=== PATIENT | male | born 1985 | race African-American/Black ===

== ENCOUNTER 2017-06-07 09:36 | Emergency (ER) | payer OTHER ==
[~2017-06-07] VITALS: Ht 170.2 cm; Wt 95.5 kg
[2017-06-07] MEDS ORDERED: NORCO, ANEXSIA 5/325MG TABLET (HYDROcodone/ACETAMINOPHEN) PO ONE (10:00)
[2017-06-07 10:38] VITALS: BP 145/88
[2017-06-07] MEDS ORDERED: NORCOTAB PO (10:40)
--- NOTE | 2017-06-07 11:22 | REP ---
REASON: Trauma. Attention first digit. PRIORS: None. There is a fracture involving the base of the distal phalanx of the first digit with anterior dislocation of the interphalangeal joint of the first digit. IMPRESSION: Fracture dislocation as described above. Signed by Diogo Hammer DO 06/07/2017 12:07 P
== END 2017-06-07 10:48 | disposition home or self-care (01) ==
LOC: M ED 09:36
DX: S92.424A Nondisplaced fracture of distal phalanx of right great toe, initial encounter for closed fracture (principal); S93.111A Dislocation of interphalangeal joint of right great toe, initial encounter; X58.XXXA Exposure to other specified factors, initial encounter; Y92.39 Other specified sports and athletic area as the place of occurrence of the external cause; Y93.9 Activity, unspecified; Y99.9 Unspecified external cause status

== ENCOUNTER 2018-03-11 09:45 | Emergency (ER) | payer OTHER ==
[2018-03-11] MEDS: NAPROXEN 250 MG TAB PO (10:28)
== END 2018-03-11 11:13 | disposition home or self-care (01) ==
LOC: M ED 09:45
DX: S69.91XA Unspecified injury of right wrist, hand and finger(s), initial encounter (principal); W22.8XXA Striking against or struck by other objects, initial encounter; Y92.59 Other trade areas as the place of occurrence of the external cause; Y99.0 Civilian activity done for income or pay; I10 Essential (primary) hypertension
CPT/HCPCS: 73140

== ENCOUNTER 2018-05-25 11:03 | Emergency (ER) | payer OTHER | END 2018-05-25 12:14 | disposition home or self-care (01) | LOC: M ED 11:03 | DX: F10.229 Alcohol dependence with intoxication, unspecified (principal); I10 Essential (primary) hypertension | CPT/HCPCS: 99284 ==

== ENCOUNTER 2018-05-26 06:29 | Inpatient (IN) | payer OTHER ==
[2018-05-26 07:34] LABS: MEAN CORPUSCULAR HEMOGLOBIN 29.6 pg (27.0-33.0); MEAN CORPUSCULAR HGB CONC 34.7 g/dl (32.0-36.5); MEAN CORPUSCULAR VOLUME 85.2 fl (80.0-96.0); PLATELET COUNT, AUTOMATED 217 10^3/uL (150-450); RED BLOOD COUNT 5.75 10^6/uL (4.30-6.10); RED CELL DISTRIBUTION WIDTH 13.3 % (11.5-14.5); WHITE BLOOD COUNT 7.5 10^3/uL (4.0-10.0)
[2018-05-26 08:08] LABS: ALBUMIN 3.9 GM/DL (3.2-5.2); ALBUMIN/GLOBULIN RATIO 1.18 (1.00-1.93); ALKALINE PHOSPHATASE 71 U/L (45-117); ALT/SGPT 94 U/L (12-78); ANION GAP 15 MEQ/L (8-16); AST/SGOT 58 U/L (7-37); BILIRUBIN,DIRECT 0.2 MG/DL (0.0-0.2); BILIRUBIN,TOTAL 0.9 MG/DL (0.2-1.0); BLOOD UREA NITROGEN 11 MG/DL (7-18); CALCIUM LEVEL 8.9 MG/DL (8.5-10.1); CARBON DIOXIDE LEVEL 26 MEQ/L (21-32); CHLORIDE LEVEL 105 MEQ/L (98-107); CREATININE FOR GFR 1.08 MG/DL (0.70-1.30); ETHYL ALCOHOL (ETHANOL) 0.329 % (0.000-0.010); GLOMERULAR FILTRATION RATE > 60.0 (>60); GLUCOSE, FASTING 100 MG/DL (70-100); SALICYLATE LEVEL < 1.7 MG/DL (5.0-30.0); SODIUM LEVEL 146 MEQ/L (136-145); TOTAL PROTEIN 7.2 GM/DL (6.4-8.2)
[2018-05-26 08:11] LABS: ACETAMINOPHEN LEVEL < 2.0 UG/ML (10.0-30.0)
[2018-05-26] MEDS ORDERED: amLODIPine 5 MG TAB PO (09:00)
[2018-05-26 09:29] LABS: AMPHETAMINES LEVEL URINE NEGATIVE (NEGATIVE); BARBITURATES URINE NEGATIVE (NEGATIVE); BENZODIAZEPINES URINE NEGATIVE (NEGATIVE); CANNABINOIDS URINE NEGATIVE (NEGATIVE); COCAINE METABOLITE URINE NEGATIVE (NEGATIVE); METHADONE URINE NEGATIVE (NEGATIVE); OPIATES URINE NEGATIVE (NEGATIVE); PHENCYCLIDINE URINE NEGATIVE (NEGATIVE)
[2018-05-26] MEDS: OXAZEPAM 15 MG CAP PO ×3 (09:57→22:00)
[2018-05-26] MEDS: ONDANSETRON 4 MG ORAL DISINTEGRATING TAB (Q0162 PER 1MG) PO (09:57)
[2018-05-26] MEDS: METOPROLOL TART 50 MG TAB PO (16:31)
[2018-05-26] MEDS: THIAMINE 100 MG TAB PO (19:29)
[2018-05-26] MEDS ORDERED: ACETAMINOPHEN TAB 650MG DOSE (2X325MG) PO (23:15)
[2018-05-26] MEDS ORDERED: OXAZEPAM 15 MG CAP PO (23:15)
[2018-05-26] MEDS ORDERED: traZODone 50 MG TAB PO (23:15)
[2018-05-26] MEDS ORDERED: MAALOX 30 ML SUSP *UDC PO (23:15)
[2018-05-26] MEDS ORDERED: MOM 30ML SUSPENSION UDC PO (23:15)
[2018-05-27] MEDS: OXAZEPAM 15 MG CAP PO ×4 (00:05→20:04)
[2018-05-27] MEDS: THIAMINE 100 MG TAB PO ×2 (09:47→20:03)
[2018-05-27] MEDS: MULTIVITAMINS/MINERALS THERAP 1 TAB PO (09:47)
[2018-05-27] MEDS: FOLIC ACID 1 MG TAB PO (09:47)
[2018-05-27] MEDS: SERTRALINE HCL 50 MG TAB PO (14:15)
[2018-05-27] MEDS: amLODIPine 10 MG TAB PO (20:04)
[2018-05-27] MEDS: LOTRISONE CREAM 15 GM (BETAMETH/CLOTRIMAZOLE) TOP (22:17)
[2018-05-28] MEDS: OXAZEPAM 15 MG CAP PO ×4 (00:04→21:16)
[2018-05-28 07:43] LABS: ALBUMIN 3.5 GM/DL (3.2-5.2); ALBUMIN/GLOBULIN RATIO 1.03 (1.00-1.93); ALKALINE PHOSPHATASE 77 U/L (45-117); ALT/SGPT 125 U/L (12-78); AST/SGOT 116 U/L (7-37); BILIRUBIN,DIRECT 0.4 MG/DL (0.0-0.2); BILIRUBIN,TOTAL 1.7 MG/DL (0.2-1.0); TOTAL PROTEIN 6.9 GM/DL (6.4-8.2)
[2018-05-28] MEDS: THIAMINE 100 MG TAB PO ×2 (09:34→21:16)
[2018-05-28] MEDS: SERTRALINE HCL 50 MG TAB PO (09:34)
[2018-05-28] MEDS: FOLIC ACID 1 MG TAB PO (09:34)
[2018-05-28] MEDS: MULTIVITAMINS/MINERALS THERAP 1 TAB PO (09:34)
[2018-05-28] MEDS: LOTRISONE CREAM 15 GM (BETAMETH/CLOTRIMAZOLE) TOP ×2 (09:35→21:00)
[2018-05-28] MEDS: amLODIPine 10 MG TAB PO (09:35)
[2018-05-29] MEDS: OXAZEPAM 15 MG CAP PO ×3 (06:06→21:29)
[2018-05-29] MEDS: LOTRISONE CREAM 15 GM (BETAMETH/CLOTRIMAZOLE) TOP ×2 (09:28→21:29)
[2018-05-29] MEDS: THIAMINE 100 MG TAB PO (09:28)
[2018-05-29] MEDS: SERTRALINE HCL 50 MG TAB PO (09:28)
[2018-05-29] MEDS: amLODIPine 10 MG TAB PO (09:28)
[2018-05-29] MEDS: FOLIC ACID 1 MG TAB PO (09:28)
[2018-05-29] MEDS: MULTIVITAMINS/MINERALS THERAP 1 TAB PO (09:28)
[2018-05-30] MEDS: OXAZEPAM 15 MG CAP PO ×3 (06:06→22:56)
[2018-05-30 07:22] LABS: ALBUMIN 3.7 GM/DL (3.2-5.2); ALBUMIN/GLOBULIN RATIO 1.12 (1.00-1.93); ALKALINE PHOSPHATASE 67 U/L (45-117); ALT/SGPT 174 U/L (12-78); AST/SGOT 98 U/L (7-37); BILIRUBIN,DIRECT 0.3 MG/DL (0.0-0.2); BILIRUBIN,TOTAL 1.5 MG/DL (0.2-1.0)
[2018-05-30] MEDS: FOLIC ACID 1 MG TAB PO (08:45)
[2018-05-30] MEDS: MULTIVITAMINS/MINERALS THERAP 1 TAB PO (08:45)
[2018-05-30] MEDS: amLODIPine 10 MG TAB PO (08:45)
[2018-05-30] MEDS: SERTRALINE HCL 50 MG TAB PO (08:45)
[2018-05-30] MEDS: LOTRISONE CREAM 15 GM (BETAMETH/CLOTRIMAZOLE) TOP ×2 (08:46→22:58)
[2018-05-31] MEDS: OXAZEPAM 15 MG CAP PO ×2 (06:16→13:10)
[2018-05-31] MEDS: FOLIC ACID 1 MG TAB PO (09:07)
[2018-05-31] MEDS: MULTIVITAMINS/MINERALS THERAP 1 TAB PO (09:07)
[2018-05-31] MEDS: LOTRISONE CREAM 15 GM (BETAMETH/CLOTRIMAZOLE) TOP ×2 (09:07→21:06)
[2018-05-31] MEDS: amLODIPine 10 MG TAB PO (09:08)
[2018-05-31] MEDS: SERTRALINE HCL 50 MG TAB PO (09:08)
[2018-05-31] MEDS ORDERED: OXAZEPAM 15 MG CAP PO (10:30)
[2018-06-01] MEDS: MULTIVITAMINS/MINERALS THERAP 1 TAB PO (08:22)
[2018-06-01] MEDS: SERTRALINE HCL 50 MG TAB PO (08:22)
[2018-06-01] MEDS: LOTRISONE CREAM 15 GM (BETAMETH/CLOTRIMAZOLE) TOP ×2 (08:23→21:11)
[2018-06-01] MEDS: amLODIPine 10 MG TAB PO (08:23)
[2018-06-01] MEDS: FOLIC ACID 1 MG TAB PO (08:23)
[2018-06-02] MEDS: SERTRALINE HCL 50 MG TAB PO (08:11)
[2018-06-02] MEDS: FOLIC ACID 1 MG TAB PO (08:11)
[2018-06-02] MEDS: LOTRISONE CREAM 15 GM (BETAMETH/CLOTRIMAZOLE) TOP (08:11)
[2018-06-02] MEDS: amLODIPine 10 MG TAB PO (08:11)
[2018-06-02] MEDS: MULTIVITAMINS/MINERALS THERAP 1 TAB PO (08:11)
== END 2018-06-02 13:00 | disposition home or self-care (01) | DRG 885 ==
LOC: M ED 06:29 → M ED INP 19:13 → M PSY 20:35
DX: F33.9 Major depressive disorder, recurrent, unspecified (principal); R45.851 Suicidal ideations; F43.10 Post-traumatic stress disorder, unspecified; F10.129 Alcohol abuse with intoxication, unspecified; I10 Essential (primary) hypertension; B35.3 Tinea pedis

== ENCOUNTER 2018-06-19 19:40 | Inpatient (IN) | payer OTHER ==
[2018-06-19 20:41] LABS: HEMATOCRIT 54.5 % (42.0-52.0); HEMOGLOBIN 18.3 g/dl (13.5-17.5); MEAN CORPUSCULAR HEMOGLOBIN 29.3 pg (27.0-33.0); MEAN CORPUSCULAR HGB CONC 33.6 g/dl (32.0-36.5); MEAN CORPUSCULAR VOLUME 87.2 fl (80.0-96.0); PLATELET COUNT, AUTOMATED 307 10^3/uL (150-450); RED BLOOD COUNT 6.25 10^6/uL (4.30-6.10); RED CELL DISTRIBUTION WIDTH 12.9 % (11.5-14.5)
[2018-06-19 20:54] LABS: AMPHETAMINES LEVEL URINE NEGATIVE (NEGATIVE); BARBITURATES URINE NEGATIVE (NEGATIVE); BENZODIAZEPINES URINE NEGATIVE (NEGATIVE); CANNABINOIDS URINE NEGATIVE (NEGATIVE); COCAINE METABOLITE URINE NEGATIVE (NEGATIVE); METHADONE URINE NEGATIVE (NEGATIVE); OPIATES URINE NEGATIVE (NEGATIVE); PHENCYCLIDINE URINE NEGATIVE (NEGATIVE)
[2018-06-19 21:06] LABS: ALBUMIN 4.6 GM/DL (3.2-5.2); ALBUMIN/GLOBULIN RATIO 1.15 (1.00-1.93); ALKALINE PHOSPHATASE 98 U/L (45-117); ALT/SGPT 79 U/L (12-78); ANION GAP 10 MEQ/L (8-16); AST/SGOT 36 U/L (7-37); BILIRUBIN,DIRECT 0.2 MG/DL (0.0-0.2); BILIRUBIN,TOTAL 0.6 MG/DL (0.2-1.0); BLOOD UREA NITROGEN 16 MG/DL (7-18); CALCIUM LEVEL 9.1 MG/DL (8.5-10.1); CARBON DIOXIDE LEVEL 28 MEQ/L (21-32); CHLORIDE LEVEL 104 MEQ/L (98-107); CREATININE FOR GFR 1.44 MG/DL (0.70-1.30); GLOMERULAR FILTRATION RATE > 60.0 (>60); GLUCOSE, FASTING 89 MG/DL (70-100); POTASSIUM SERUM 4.2 MEQ/L (3.5-5.1); SALICYLATE LEVEL < 1.7 MG/DL (5.0-30.0); SODIUM LEVEL 142 MEQ/L (136-145); TOTAL PROTEIN 8.6 GM/DL (6.4-8.2)
[2018-06-19 21:14] LABS: ACETAMINOPHEN LEVEL < 2.0 UG/ML (10.0-30.0)
[2018-06-20] MEDS ORDERED: MAALOX 30 ML SUSP *UDC PO (11:00)
[2018-06-20] MEDS ORDERED: ACETAMINOPHEN TAB 650MG DOSE (2X325MG) PO (11:00)
[2018-06-20] MEDS ORDERED: MOM 30ML SUSPENSION UDC PO (11:00)
[2018-06-20] MEDS: OXAZEPAM 15 MG CAP PO (11:44)
[2018-06-20] MEDS: SERTRALINE 100 MG TAB PO (15:03)
[2018-06-20] MEDS: amLODIPine 10 MG TAB PO (16:44)
[2018-06-20] MEDS: LORazepam 2 MG TAB PO (18:10)
[2018-06-21] MEDS: LORazepam 2 MG TAB PO ×2 (08:13→17:44)
[2018-06-21] MEDS: SERTRALINE 100 MG TAB PO (08:14)
[2018-06-21] MEDS: amLODIPine 10 MG TAB PO (08:14)
[2018-06-21] MEDS: NALTREXONE 50 MG TAB PO (15:39)
[2018-06-21] MEDS ORDERED: LORazepam 2 MG TAB PO (23:00)
[2018-06-21] MEDS: METOPROLOL TART 25 MG TABLET PO (23:00)
[2018-06-22 06:47] LABS: BASO # 0.1 10^3/uL (0.0-0.2); BASO % 0.6 % (0.0-1.0); EOS # 0.1 10^3/uL (0.0-0.50); EOS % 1.1 % (0.0-3.0); HEMATOCRIT 50.1 % (42.0-52.0); HEMOGLOBIN 17.3 g/dl (13.5-17.5); IMMATURE GRANULOCYTE % 0.2 % (0-3.0); LYMPH # 2.4 10^3/uL (1.5-4.5); LYMPH % 26.6 % (24.0-44.0); MEAN CORPUSCULAR HEMOGLOBIN 29.2 pg (27.0-33.0); MEAN CORPUSCULAR HGB CONC 34.5 g/dl (32.0-36.5); MEAN CORPUSCULAR VOLUME 84.6 fl (80.0-96.0); MONO # 0.7 10^3/uL (0.0-0.8); MONO % 7.5 % (0.0-5.0); NEUTROPHILS # 5.8 10^3/uL (1.8-7.7); PLATELET COUNT, AUTOMATED 277 10^3/uL (150-450); RED BLOOD COUNT 5.92 10^6/uL (4.30-6.10); RED CELL DISTRIBUTION WIDTH 12.5 % (11.5-14.5)
[2018-06-22 07:20] LABS: ALBUMIN 4.2 GM/DL (3.2-5.2); ALBUMIN/GLOBULIN RATIO 1.14 (1.00-1.93); ALKALINE PHOSPHATASE 91 U/L (45-117); ALT/SGPT 55 U/L (12-78); ANION GAP 8 MEQ/L (8-16); AST/SGOT 25 U/L (7-37); BILIRUBIN,TOTAL 1.5 MG/DL (0.2-1.0); BLOOD UREA NITROGEN 20 MG/DL (7-18); CALCIUM LEVEL 9.7 MG/DL (8.5-10.1); CARBON DIOXIDE LEVEL 27 MEQ/L (21-32); CHLORIDE LEVEL 106 MEQ/L (98-107); CREATININE FOR GFR 1.16 MG/DL (0.70-1.30); GLOMERULAR FILTRATION RATE > 60.0 (>60); GLUCOSE, FASTING 114 MG/DL (70-100); POTASSIUM SERUM 4.2 MEQ/L (3.5-5.1); SODIUM LEVEL 141 MEQ/L (136-145); TOTAL PROTEIN 7.9 GM/DL (6.4-8.2)
[2018-06-22] MEDS ORDERED: THIAMINE 100 MG TAB PO (09:00)
[2018-06-22] MEDS: METOPROLOL TART 25 MG TABLET PO ×2 (09:00→20:50)
[2018-06-22] MEDS: amLODIPine 10 MG TAB PO (09:00)
[2018-06-22] MEDS: SERTRALINE 100 MG TAB PO (09:00)
[2018-06-22] MEDS: MULTIVITAMINS/MINERALS THERAP 1 TAB PO (09:00)
[2018-06-22] MEDS: NALTREXONE 50 MG TAB PO (09:00)
[2018-06-22] MEDS: THIAMINE 100 MG TAB PO ×2 (09:00→20:50)
[2018-06-22] MEDS: FOLIC ACID 1 MG TAB PO (09:00)
[2018-06-22] MEDS: traZODone 50 MG TAB PO (20:50)
[2018-06-23] MEDS: amLODIPine 10 MG TAB PO (09:16)
[2018-06-23] MEDS: NALTREXONE 50 MG TAB PO (09:16)
[2018-06-23] MEDS: METOPROLOL TART 25 MG TABLET PO (09:16)
[2018-06-23] MEDS: MULTIVITAMINS/MINERALS THERAP 1 TAB PO (09:16)
[2018-06-23] MEDS: SERTRALINE 100 MG TAB PO (09:16)
[2018-06-23] MEDS: FOLIC ACID 1 MG TAB PO (09:16)
[2018-06-23] MEDS: THIAMINE 100 MG TAB PO (09:16)
== END 2018-06-23 11:30 | disposition home or self-care (01) | DRG 885 ==
LOC: M ED INP 06-20 10:46 → M ED 19:40 → M PSY 06-20 14:16
DX: F33.9 Major depressive disorder, recurrent, unspecified (principal); R45.851 Suicidal ideations; F10.20 Alcohol dependence, uncomplicated; F43.10 Post-traumatic stress disorder, unspecified; Z79.899 Other long term (current) drug therapy

== ENCOUNTER 2018-08-12 14:05 | Emergency (ER) | payer OTHER | END 2018-08-12 18:33 | disposition home or self-care (01) | LOC: M ED 14:05 | DX: F33.9 Major depressive disorder, recurrent, unspecified (principal); I10 Essential (primary) hypertension; F43.10 Post-traumatic stress disorder, unspecified; F10.10 Alcohol abuse, uncomplicated; Z79.899 Other long term (current) drug therapy | CPT/HCPCS: 99283 ==

== ENCOUNTER 2018-08-14 13:42 | Emergency (ER) | payer OTHER ==
[2018-08-14 15:20] LABS: ETHYL ALCOHOL (ETHANOL) 0.262 % (0.000-0.010)
== END 2018-08-14 16:07 | disposition home or self-care (01) ==
LOC: M ED 13:42
DX: F19.10 Other psychoactive substance abuse, uncomplicated (principal); F10.10 Alcohol abuse, uncomplicated
CPT/HCPCS: G0480

== ENCOUNTER 2018-08-20 07:29 | Inpatient (IN) | payer OTHER ==
[2018-08-20] MEDS: amLODIPine 10 MG TAB PO (08:07)
[2018-08-20] MEDS: OXAZEPAM 15 MG CAP PO ×3 (08:08→20:06)
[2018-08-20 08:16] LABS: HEMATOCRIT 51.6 % (42.0-52.0); HEMOGLOBIN 17.3 g/dl (13.5-17.5); MEAN CORPUSCULAR HEMOGLOBIN 29.5 pg (27.0-33.0); MEAN CORPUSCULAR HGB CONC 33.5 g/dl (32.0-36.5); MEAN CORPUSCULAR VOLUME 87.9 fl (80.0-96.0); PLATELET COUNT, AUTOMATED 239 10^3/uL (150-450); RED BLOOD COUNT 5.87 10^6/uL (4.30-6.10); RED CELL DISTRIBUTION WIDTH 14.4 % (11.5-14.5); WHITE BLOOD COUNT 6.8 10^3/uL (4.0-10.0)
[2018-08-20 08:26] LABS: AMORPHOUS SEDIMENT SMALL (NEGATIVE); APPEARANCE, URINE HAZY (CLEAR); BACTERIA, URINE AUTO NEGATIVE (NEGATIVE); BILIRUBIN, URINE AUTO 1+ (NEGATIVE); BLOOD, URINE BLOOD 1+ (NEGATIVE); COLOR, URINE AMBER (YELLOW); GLUCOSE, URINE (UA) AUTO NEGATIVE (NEGATIVE); KETONE, URINE AUTO 1+ mg/dL (NEGATIVE); LEUKOCYTE ESTERASE, URINE AUTO NEGATIVE (NEGATIVE); MUCUS, URINE LARGE (NEGATIVE); NITRITE, URINE AUTO NEGATIVE (NEGATIVE); PROTEIN, URINE AUTO 3+ mg/dL (NEGATIVE); RBC, URINE AUTO 15 /HPF (0-3); SQUAMOUS EPITHELIAL CELL UR AU 0 /HPF (0-6); WBC, URINE AUTO 4 /HPF (0-3)
[2018-08-20 09:08] LABS: ACETAMINOPHEN LEVEL < 2.0 UG/ML (10.0-30.0); ALBUMIN 4.2 GM/DL (3.2-5.2); ALBUMIN/GLOBULIN RATIO 1.24 (1.00-1.93); ALKALINE PHOSPHATASE 81 U/L (45-117); ALT/SGPT 45 U/L (12-78); ANION GAP 13 MEQ/L (8-16); AST/SGOT 47 U/L (7-37); BILIRUBIN,DIRECT 0.5 MG/DL (0.0-0.2); BILIRUBIN,TOTAL 2.4 MG/DL (0.2-1.0); BLOOD UREA NITROGEN 14 MG/DL (7-18); CALCIUM LEVEL 9.8 MG/DL (8.5-10.1); CARBON DIOXIDE LEVEL 26 MEQ/L (21-32); CHLORIDE LEVEL 99 MEQ/L (98-107); CREATININE FOR GFR 1.27 MG/DL (0.70-1.30); ETHYL ALCOHOL (ETHANOL) < 0.003 % (0.000-0.010); GLOMERULAR FILTRATION RATE > 60.0 (>60); GLUCOSE, FASTING 95 MG/DL (70-100); POTASSIUM SERUM 4.1 MEQ/L (3.5-5.1); SALICYLATE LEVEL < 1.7 MG/DL (5.0-30.0); SODIUM LEVEL 138 MEQ/L (136-145); TOTAL PROTEIN 7.6 GM/DL (6.4-8.2)
[2018-08-20 09:11] LABS: AMPHETAMINES LEVEL URINE NEGATIVE (NEGATIVE); BARBITURATES URINE NEGATIVE (NEGATIVE); BENZODIAZEPINES URINE POSITIVE (NEGATIVE); CANNABINOIDS URINE NEGATIVE (NEGATIVE); COCAINE METABOLITE URINE NEGATIVE (NEGATIVE); METHADONE URINE NEGATIVE (NEGATIVE); OPIATES URINE NEGATIVE (NEGATIVE); PHENCYCLIDINE URINE NEGATIVE (NEGATIVE)
[2018-08-20] MEDS ORDERED: MOM 30ML SUSPENSION UDC PO (14:45)
[2018-08-20] MEDS ORDERED: ACETAMINOPHEN TAB 650MG DOSE (2X325MG) PO (14:45)
[2018-08-20] MEDS ORDERED: traZODone 50 MG TAB PO (14:45)
[2018-08-20] MEDS ORDERED: MAALOX 30 ML SUSP *UDC PO (14:45)
[2018-08-21] MEDS: OXAZEPAM 15 MG CAP PO ×2 (06:34→13:29)
[2018-08-21] MEDS ORDERED: SERTRALINE HCL 50 MG TAB PO (08:15)
[2018-08-21] MEDS: SERTRALINE HCL 50 MG TAB PO (09:35)
[2018-08-21] MEDS ORDERED: ACETAMINOPHEN TAB 650MG DOSE (2X325MG) PO (12:45)
[2018-08-21] MEDS ORDERED: MAALOX 30 ML SUSP *UDC PO (12:45)
[2018-08-21] MEDS ORDERED: MOM 30ML SUSPENSION UDC PO (12:45)
[2018-08-21] MEDS: FOLIC ACID 1 MG TAB PO (16:17)
[2018-08-21] MEDS: MULTIVITAMINS/MINERALS THERAP 1 TAB PO (16:17)
[2018-08-21] MEDS: NALTREXONE 50 MG TAB PO (17:03)
[2018-08-21] MEDS: THIAMINE 100 MG TAB PO (21:00)
[2018-08-21] MEDS: LORazepam 2 MG TAB PO (21:10)
[2018-08-21] MEDS: traZODone 50 MG TAB PO (22:03)
[2018-08-22] MEDS: FOLIC ACID 1 MG TAB PO (09:33)
[2018-08-22] MEDS: THIAMINE 100 MG TAB PO ×2 (09:33→20:39)
[2018-08-22] MEDS: NALTREXONE 50 MG TAB PO (09:33)
[2018-08-22] MEDS: MULTIVITAMINS/MINERALS THERAP 1 TAB PO (09:33)
[2018-08-22] MEDS: SERTRALINE HCL 50 MG TAB PO (09:33)
[2018-08-22] MEDS: VENLAFAXINE **XR** 37.5 MG CAPSULE PO (10:49)
[2018-08-22] MEDS: LORazepam 2 MG TAB PO (19:50)
[2018-08-22] MEDS: traZODone 50 MG TAB PO (20:39)
[2018-08-23 08:01] LABS: ALBUMIN 3.6 GM/DL (3.2-5.2); ALBUMIN/GLOBULIN RATIO 1.06 (1.00-1.93); ALKALINE PHOSPHATASE 83 U/L (45-117); ALT/SGPT 53 U/L (12-78); AST/SGOT 29 U/L (7-37); BILIRUBIN,DIRECT 0.3 MG/DL (0.0-0.2); BILIRUBIN,TOTAL 1.4 MG/DL (0.2-1.0)
[2018-08-23] MEDS: FOLIC ACID 1 MG TAB PO (10:36)
[2018-08-23] MEDS: MULTIVITAMINS/MINERALS THERAP 1 TAB PO (10:36)
[2018-08-23] MEDS: THIAMINE 100 MG TAB PO ×2 (10:36→20:15)
[2018-08-23] MEDS: VENLAFAXINE **XR** 37.5 MG CAPSULE PO (10:36)
[2018-08-23] MEDS: LORazepam 2 MG TAB PO (10:36)
[2018-08-23] MEDS: NALTREXONE 50 MG TAB PO (10:36)
[2018-08-23] MEDS: SERTRALINE HCL 50 MG TAB PO (10:36)
[2018-08-23] MEDS: traZODone 50 MG TAB PO (20:15)
[2018-08-24] MEDS: VENLAFAXINE **XR** 75MG CAPSULE PO (09:40)
[2018-08-24] MEDS: NALTREXONE 50 MG TAB PO (09:40)
[2018-08-24] MEDS: FOLIC ACID 1 MG TAB PO (09:41)
[2018-08-24] MEDS: MULTIVITAMINS/MINERALS THERAP 1 TAB PO (09:41)
[2018-08-24] MEDS: THIAMINE 100 MG TAB PO (09:41)
[2018-08-24] MEDS: traZODone 100 MG TAB PO (20:26)
[2018-08-25] MEDS: FOLIC ACID 1 MG TAB PO (08:56)
[2018-08-25] MEDS: MULTIVITAMINS/MINERALS THERAP 1 TAB PO (08:56)
[2018-08-25] MEDS: VENLAFAXINE **XR** 75MG CAPSULE PO (08:56)
[2018-08-25] MEDS: NALTREXONE 50 MG TAB PO (08:56)
[2018-08-25] MEDS: LORazepam 2 MG TAB PO (20:31)
[2018-08-25] MEDS: traZODone 100 MG TAB PO (20:31)
[2018-08-26] MEDS: VENLAFAXINE **XR** 75MG CAPSULE PO (09:13)
[2018-08-26] MEDS: NALTREXONE 50 MG TAB PO (09:13)
[2018-08-26] MEDS: MULTIVITAMINS/MINERALS THERAP 1 TAB PO (09:13)
[2018-08-26] MEDS: FOLIC ACID 1 MG TAB PO (09:13)
[2018-08-26] MEDS: traZODone 100 MG TAB PO (21:52)
[2018-08-26] MEDS: LORazepam 2 MG TAB PO (21:58)
[2018-08-27] MEDS: VENLAFAXINE **XR** 75MG CAPSULE PO (08:51)
[2018-08-27] MEDS: FOLIC ACID 1 MG TAB PO (08:51)
[2018-08-27] MEDS: MULTIVITAMINS/MINERALS THERAP 1 TAB PO (08:51)
[2018-08-27] MEDS: NALTREXONE 50 MG TAB PO (08:51)
[2018-08-27] MEDS: traZODone 100 MG TAB PO (20:37)
[2018-08-27] MEDS: LORazepam 0.5 MG TAB PO (20:37)
[2018-08-28] MEDS: MULTIVITAMINS/MINERALS THERAP 1 TAB PO (08:03)
[2018-08-28] MEDS: VENLAFAXINE **XR** 75MG CAPSULE PO (08:03)
[2018-08-28] MEDS: NALTREXONE 50 MG TAB PO (08:03)
[2018-08-28] MEDS: FOLIC ACID 1 MG TAB PO (08:03)
[2018-08-28] MEDS: OLANZapine ORAL DISINTEGRATING TAB 5MG PO (20:57)
[2018-08-28] MEDS: traZODone 100 MG TAB PO (21:35)
[2018-08-29] MEDS: MULTIVITAMINS/MINERALS THERAP 1 TAB PO (09:23)
[2018-08-29] MEDS: NALTREXONE 50 MG TAB PO (09:23)
[2018-08-29] MEDS: OLANZapine ORAL DISINTEGRATING TAB 5MG PO ×2 (09:23→18:52)
[2018-08-29] MEDS: FOLIC ACID 1 MG TAB PO (09:23)
[2018-08-29] MEDS: VENLAFAXINE **XR** 75MG CAPSULE PO (09:23)
[2018-08-29] MEDS: traZODone 100 MG TAB PO (20:51)
[2018-08-30] MEDS: VENLAFAXINE **XR** 75MG CAPSULE PO (08:14)
[2018-08-30] MEDS: MULTIVITAMINS/MINERALS THERAP 1 TAB PO (08:14)
[2018-08-30] MEDS: NALTREXONE 50 MG TAB PO (08:14)
[2018-08-30] MEDS: FOLIC ACID 1 MG TAB PO (08:14)
[2018-08-30] MEDS: OLANZapine ORAL DISINTEGRATING TAB 5MG PO ×2 (08:14→20:10)
[2018-08-30] MEDS: traZODone 100 MG TAB PO (21:24)
[2018-08-31] MEDS: FOLIC ACID 1 MG TAB PO (09:03)
[2018-08-31] MEDS: NALTREXONE 50 MG TAB PO (09:03)
[2018-08-31] MEDS: VENLAFAXINE **XR** 75MG CAPSULE PO (09:03)
[2018-08-31] MEDS: MULTIVITAMINS/MINERALS THERAP 1 TAB PO (09:03)
[2018-08-31] MEDS: OLANZapine ORAL DISINTEGRATING TAB 5MG PO ×2 (12:20→20:23)
[2018-08-31] MEDS: traZODone 100 MG TAB PO (21:32)
[2018-09-01] MEDS: NALTREXONE 50 MG TAB PO (08:45)
[2018-09-01] MEDS: MULTIVITAMINS/MINERALS THERAP 1 TAB PO (08:45)
[2018-09-01] MEDS: VENLAFAXINE **XR** 75MG CAPSULE PO (08:45)
[2018-09-01] MEDS: FOLIC ACID 1 MG TAB PO (08:45)
[2018-09-01] MEDS: OLANZapine ORAL DISINTEGRATING TAB 5MG PO (11:40)
== END 2018-09-01 15:00 | disposition home or self-care (01) | DRG 885 ==
LOC: M ED INP 08-21 12:45 → M ED 07:29 → M PSY 08-21 14:55 → M ED INP 14:40
DX: F33.1 Major depressive disorder, recurrent, moderate (principal); F43.10 Post-traumatic stress disorder, unspecified; F10.20 Alcohol dependence, uncomplicated; E80.7 Disorder of bilirubin metabolism, unspecified

== ENCOUNTER → 2019-03-04 | Outpatient (REF) | payer OTHER ==
[~2019-03-04] MED LIST: AMLO10TA5 PO; HYDR-3715 PO; MELA3TAB PO; NALT50TA4 PO; NORV2TAB PO; SERT-138 PO; SERT-141 PO; SERT-155 PO; TRAZ10TA PO; TRAZO50TA PO; VENL75CA47 PO; ZOLO100T PO; ZOLO25TA PO
[2019-03-04 17:08] LABS: BLOOD UREA NITROGEN 17 MG/DL (7-18); CALCIUM LEVEL 9.2 MG/DL (8.5-10.1); CARBON DIOXIDE LEVEL 28 MEQ/L (21-32); CHLORIDE LEVEL 103 MEQ/L (98-107); CREATININE FOR GFR 1.18 MG/DL (0.70-1.30); GLOMERULAR FILTRATION RATE > 60.0 (>60); GLUCOSE, FASTING 102 MG/DL (70-100); POTASSIUM SERUM 4.4 MEQ/L (3.5-5.1); SODIUM LEVEL 138 MEQ/L (136-145)
== END ==
LOC: M SFHCPLAZ 14:03
DX: I10 Essential (primary) hypertension (principal)

== ENCOUNTER → 2019-09-17 | Outpatient (CLI) | payer OTHER ==
[~2019-09-17] MED LIST changes: -MELA3TAB PO; +MELA3TAB63 PO; -SERT-155 PO; +SERT50TA29 PO; +TRAZ1TAB10 PO; -TRAZO50TA PO
== END ==
LOC: M LAB 12:08
PROVIDERS: ATTEND Nurse Practitioner Psychiatric/Mental Health
DX: F10.20 Alcohol dependence, uncomplicated (principal)

== ENCOUNTER → 2021-11-04 | Outpatient (REF) | payer OTHER ==
[~2021-11-04] MED LIST changes: -AMLO10TA5 PO; +AMLO1TAB25 PO; -MELA3TAB63 PO; +MELA3TAB70 PO; -TRAZ10TA PO; +TRAZ1TAB12 PO
== END ==
LOC: M LAB REF 18:27
PROVIDERS: ATTEND Physician Assistant Medical
DX: R50.9 Fever, unspecified (principal); R53.83 Other fatigue

== ENCOUNTER → 2022-08-05 | Outpatient (REF) | payer OTHER ==
[2022-08-05 08:42] LABS: SEMEN APPEARANCE OPAQUE (OPAQUE); SEMEN VISCOSITY LIQUID (LIQUID); WBC CONCENTRATION <=1 M/ml (<=1 M/ml)
[2022-08-05 08:45] LABS: SPERM CONCENTRATION 83.6 M/ml (>=15.0)
== END ==
LOC: M SFHCWAGY 08:28
PROVIDERS: ATTEND Obstetrics & Gynecology
DX: Z31.69 Encounter for other general counseling and advice on procreation (principal)

== ENCOUNTER → 2022-09-05 | Outpatient (REF) | payer OTHER ==
[2022-09-05 09:18] LABS: SEMEN APPEARANCE OPAQUE (OPAQUE); SEMEN VISCOSITY VISCOUS (LIQUID); SEMEN VOLUME 2.3 ml (2.0-5.0)
[2022-09-05 09:19] LABS: SPERM CONCENTRATION 14.3 M/ml (>=15.0); WBC CONCENTRATION <=1 M/ml (<=1 M/ml)
== END ==
LOC: M SFHCWAGY 09:09
PROVIDERS: ATTEND Specialist
DX: N46.9 Male infertility, unspecified (principal)

== ENCOUNTER 2024-06-15 05:46 | Emergency (ER) | payer OTHER, SELFPAY ==
[~2024-06-15] VITALS: Ht 172.7 cm; Wt 109.1 kg
[2024-06-15] MEDS: AMPICILLIN SOD/SULBACTAM SOD 3 GM in D5W MINI-BAG PLUS 100 ML IV ONE (07:54)
[2024-06-15] MEDS: BOOSTRIX VACCINE (TETANUS/DIPHTH/ACEL. PERTUSSIS) 0.5ML SYR IM.IMMUN ONE (07:55)
[2024-06-15 08:02] LABS: HEMATOCRIT 47.7 % (42.0-52.0); MEAN CORPUSCULAR HEMOGLOBIN 29.3 pg (27.0-33.0); MEAN CORPUSCULAR HGB CONC 33.5 g/dl (32.0-36.5); MEAN CORPUSCULAR VOLUME 87.2 fl (80.0-96.0); PLATELET COUNT, AUTOMATED 220 10^3/uL (150-450); RED BLOOD COUNT 5.47 10^6/uL (4.30-6.10); WHITE BLOOD COUNT 15.6 10^3/uL (4.0-10.0)
[2024-06-15 08:19] LABS: ETHYL ALCOHOL (ETHANOL) < 0.003 % (0.000-0.010)
[2024-06-15 08:20] LABS: BLOOD UREA NITROGEN 12 MG/DL (9-23); CARBON DIOXIDE LEVEL 26 MMOL/L (20-31); CHLORIDE LEVEL 107 MMOL/L (98-107); GLOMERULAR FILTRATION RATE > 60.0 (>60); GLUCOSE, FASTING 117 MG/DL (60-100); POTASSIUM SERUM 4.2 MMOL/L (3.5-5.1); SODIUM LEVEL 138 MMOL/L (136-145)
[2024-06-15] MEDS: MORPHINE 4 MG/ML 1ML VIAL IV ONE (09:53)
[2024-06-15 10:01] VITALS: BP 166/100; TEMP 98.7; O2SAT 98
== END 2024-06-15 10:19 | disposition short-term general hospital (02) ==
LOC: M ED 05:46
DX: S82.841A Displaced bimalleolar fracture of right lower leg, initial encounter for closed fracture (principal); S02.32XA Fracture of orbital floor, left side, initial encounter for closed fracture; H50.6 Mechanical strabismus; S93.04XA Dislocation of right ankle joint, initial encounter; W10.8XXA Fall (on) (from) other stairs and steps, initial encounter; F10.10 Alcohol abuse, uncomplicated; Y92.009 Unspecified place in unspecified non-institutional (private) residence as the place of occurrence of the external cause; Y93.89 Activity, other specified; Y99.9 Unspecified external cause status; Z23 Encounter for immunization; Z79.899 Other long term (current) drug therapy
CPT/HCPCS: 70450; 70486; 72125; 73610; 80048; 82077; 85027; 90471; 90715; 96365; 96375; 99285; J0295

== ENCOUNTER → 2024-10-20 | Outpatient (CLI) | payer OTHER ==
[2024-10-20 11:14] LABS: BASO # 0.1 10^3/uL (0.0-0.2); BASO % 0.6 % (0.0-1.0); EOS # 0.1 10^3/uL (0.0-0.5); EOS % 0.7 % (0.0-3.0); HEMATOCRIT 47.7 % (42.0-52.0); HEMOGLOBIN 16.1 g/dl (13.5-17.5); LYMPH # 1.8 10^3/uL (1.5-5.0); LYMPH % 20.9 % (24.0-44.0); MEAN CORPUSCULAR HEMOGLOBIN 28.8 pg (27.0-33.0); MEAN CORPUSCULAR HGB CONC 33.8 g/dl (32.0-36.5); MEAN CORPUSCULAR VOLUME 85.2 fl (80.0-96.0); MONO # 0.5 10^3/uL (0.0-0.8); NEUTROPHILS # 6.3 10^3/uL (1.5-8.5); NEUTROPHILS % 71.6 % (36.0-66.0); PLATELET COUNT, AUTOMATED 212 10^3/uL (150-450); WHITE BLOOD COUNT 8.8 10^3/uL (4.0-10.0)
[2024-10-20 11:38] LABS: HEMOGLOBIN A1c 5.3 % (4.0-6.0)
[2024-10-20 11:46] LABS: ALBUMIN 4.1 G/DL (3.2-5.2); ALKALINE PHOSPHATASE 90 U/L (40-129); ALT/SGPT 22 U/L (7.0-40); AST/SGOT 16 U/L (<34); BILIRUBIN,TOTAL 0.6 MG/DL (0.3-1.2); BLOOD UREA NITROGEN 21 MG/DL (9-23); CALCIUM LEVEL 9.7 MG/DL (8.5-10.1); CARBON DIOXIDE LEVEL 26 MMOL/L (20-31); CHLORIDE LEVEL 105 MMOL/L (98-107); CHOLESTEROL LEVEL 172 MG/DL (<200); CHOLESTEROL RISK RATIO 3.39 (<5); CREATININE FOR GFR 1.07 MG/DL (0.70-1.30); GLOMERULAR FILTRATION RATE > 60.0 (>60); GLUCOSE, FASTING 106 MG/DL (60-100); HDL CHOLESTEROL 50.7 MG/DL (>40); LDL CHOLESTEROL 104.7 MG/DL (<100); NON-HDL-C 121.3 MG/DL; POTASSIUM SERUM 3.9 MMOL/L (3.5-5.1); SODIUM LEVEL 142 MMOL/L (136-145); TOTAL PROTEIN 7.4 G/DL (5.7-8.2); TRIGLYCERIDES LEVEL 83 MG/DL (<150)
[2024-10-20 11:47] LABS: FREE T4 1.14 NG/DL (0.89-1.76); THYROID STIMULATING HORMONE 1.972 uIU/ML (0.55-4.78)
[2024-10-20 12:19] LABS: Trichomonas vaginalis (AMP) NOT DETECTED (NEGATIVE)
[2024-10-20 12:43] LABS: GC DNA AMPLIFICATION NEGATIVE (NEGATIVE)
== END ==
LOC: M LAB 09:07
DX: Z00.8 Encounter for other general examination (principal); Z11.3 Encounter for screening for infections with a predominantly sexual mode of transmission